=== PATIENT | male | born 1950 | race Caucasian/White ===

== ENCOUNTER 2016-07-07 02:53 | Emergency (ER) | payer OTHER ==
--- NOTE | 2016-07-07 04:02 | ED NURSING NOTES ---
Clinical Report - Nurses [facility] [address] [place] [address] 07/07/2016 2:55 Patient: TOMÁS WARD TRIAGE Acuity: LEVEL 4. Chief Complaint: SORE THROAT. --03:02 Samm Jensen R.N. 02:59 07/07/16. BP: 140/82. HR: 92. RR: 18. O2 saturation: 98%. Temp: 97.4 F. --03:02 Samm Jensen R.N. Weight: 99.7 kg stated. Height/Length: 73 inches Per Patient. BMI: 29. --03:02 Samm Jensen R.N. Medications None. --03:01 Samm Jensen R.N. Allergies No Known Drug Allergy. --03:01 Samm Jensen R.N. History ( Pt reports sore throat for 4 days reports that it has gotten worse and he has an interview in the AM). Onset. (4 days). SOCIAL HX: Heavy tobacco smoker. No alcohol use or drug use. --03:02 Samm Jensen R.N. Interventions ID band on patient. To treatment room. --03:02 Samm Jensen R.N. PHYSICAL ASSESSMENT GENERAL / NEURO / PSYCH: Appears in no acute distress. HEENT: Pupils equal, round and reactive to light. Left-sided tonsillar swelling. Mouth within normal limits upon inspection. No dental injury noted. RESPIRATORY: Respirations not labored. CVS: Capillary refill less than 2 seconds. SKIN: Skin is warm and dry. --03:07 Samm Jensen R.N. NURSING PROGRESS NOTES Call light placed in reach. Side rails up x 1. Bed placed in lowest position. Brakes of bed on. --03:07 Samm Jensen R.N. DISPOSITION / DISCHARGE Departure time: 0406. Condition at departure: unchanged. No learning barriers present. Discharge instructions provided and reviewed with the patient. Reviewed medication(s) information. Patient verbalized understanding. Written instructions provided in Nicarag[place]. The patient was discharged by the physician. He was discharged home and accompanied by family. He left the Emergency Department ambulatory and via private vehicle. Patient driving. ( Pt ambulated on discharge steady on his feet pt verbalized understanding of discharge instructions and follow up care.). --04:12 Samm Jensen R.N. 04:10 07/07/16. BP: 135/78. HR: 86. RR: 16. O2 saturation: 100%. Temp: 97.9 F. --04:12 Samm Jensen R.N. Locked/Released at 07/07/2016 5:46 by Samm Jensen R.N.
--- NOTE | 2016-07-07 04:02 | ED NURSING NOTES ---
Clinical Report - Nurses [facility] [address] [place] [address] 07/07/2016 2:55 Patient: TOMÁS WARD TRIAGE Acuity: LEVEL 4. Chief Complaint: SORE THROAT. --03:02 Samm Jensen R.N. 02:59 07/07/16. BP: 140/82. HR: 92. RR: 18. O2 saturation: 98%. Temp: 97.4 F. --03:02 Samm Jensen R.N. Weight: 99.7 kg stated. Height/Length: 73 inches Per Patient. BMI: 29. --03:02 Samm Jensen R.N. Medications None. --03:01 Samm Jensen R.N. Allergies No Known Drug Allergy. --03:01 Samm Jensen R.N. History ( Pt reports sore throat for 4 days reports that it has gotten worse and he has an interview in the AM). Onset. (4 days). SOCIAL HX: Heavy tobacco smoker. No alcohol use or drug use. --03:02 Samm Jensen R.N. Interventions ID band on patient. To treatment room. --03:02 Samm Jensen R.N. PHYSICAL ASSESSMENT GENERAL / NEURO / PSYCH: Appears in no acute distress. HEENT: Pupils equal, round and reactive to light. Left-sided tonsillar swelling. Mouth within normal limits upon inspection. No dental injury noted. RESPIRATORY: Respirations not labored. CVS: Capillary refill less than 2 seconds. SKIN: Skin is warm and dry. --03:07 Samm Jensen R.N. NURSING PROGRESS NOTES Call light placed in reach. Side rails up x 1. Bed placed in lowest position. Brakes of bed on. --03:07 Samm Jensen R.N. DISPOSITION / DISCHARGE Departure time: 0406. Condition at departure: unchanged. No learning barriers present. Discharge instructions provided and reviewed with the patient. Reviewed medication(s) information. Patient verbalized understanding. Written instructions provided in Welsh. The patient was discharged by the physician. He was discharged home and accompanied by family. He left the Emergency Department ambulatory and via private vehicle. Patient driving. ( Pt ambulated on discharge steady on his feet pt verbalized understanding of discharge instructions and follow up care.). --04:12 Samm Jensen R.N. 04:10 07/07/16. BP: 135/78. HR: 86. RR: 16. O2 saturation: 100%. Temp: 97.9 F. --04:12 Samm Jensen R.N. Locked/Released at 07/07/2016 5:46 by Samm Jensen R.N.
--- NOTE | 2016-07-07 04:02 | ED CLINICAL REPORT ---
Clinical Report - Physicians/Mid Levels [facility] [address] [place] [address] 07/07/2016 2:55 Patient: TOMÁS WARD Time Seen: 03:07; initial patient contact. Arrived- By private vehicle. Historian- patient. HISTORY OF PRESENT ILLNESS Chief Complaint: SORE THROAT. This started about 4 days ago and is still present and worsening. (persistent). It was gradual in onset and has been constant. Pain described as moderate. The patient has had a sore throat, nasal congestion and a nasal discharge. No mouth sores, ear pain, toothache or swollen jaw or face. No jaw pain or facial pain. Similar symptoms previously: None. Recent medical care: Not recently seen/assessed. REVIEW OF SYSTEMS No fever or difficulty breathing. He has had a cough. All systems otherwise negative, except as recorded above. PAST HISTORY See nurses notes. Medications: None. Allergies: No Known Drug Allergy. SOCIAL HISTORY Current every day heavy tobacco smoker. No alcohol use or drug use. ADDITIONAL NOTES The nursing notes have been reviewed with agreement regarding the chief complaint, PMH and patient medications and allergies. PHYSICAL EXAM Vital Signs: 07/07/2016 02:59 BP: 140/82. HR: 92. RR: 18. O2 saturation: 98%. Temp: 97.4 F. Have been reviewed. Hypertensive. Heart rate normal. Respiratory rate normal. Temperature normal. Oxygen saturation normal. Appearance: Alert. No acute distress. Head: Normal external inspection. ENT: Nose normal. Moderate generalized pharyngeal erythema with right tonsillar swelling and left tonsillar swelling. No trismus present. No drooling. The mucous membranes are not dry. Neck: No adenopathy. CVS: Normal heart rate and rhythm. Heart sounds normal. Respiratory: No respiratory distress. Breath sounds normal. Skin: No rash. Neuro: Oriented X 3. LABS, X-RAYS, AND EKG Laboratory Tests: Culture, Strep Screen: (NEDRA: 07/07/2016 03:02) ( MsgRcvd 07/07/2016 03:43) Final results Test Result Flag Units (Reference) RAPID STREP SCREEN - THROAT DATE: 07/07/16 NEGATIVE SCREEN: RAPID STREP SCREEN NEGATIVE; CONFIRMATION TO FOLLOW Rapid Influenza Screen: (NEDRA: 07/07/2016 03:02) ( MsgRcvd 07/07/2016 03:43) Final results SPECIMEN DESCRIPTION: WANT AD CLERK Test Result Flag Units (Reference) RAPID INFLUENZA SCREEN DATE: 07/07/16 INFLUENZA A: NEGATIVE SCREEN FOR INFLUENZA A INFLUENZA B: NEGATIVE SCREEN FOR INFLUENZA B . PROGRESS AND PROCEDURES Disposition: Discharged home in good condition. Condition: good. CLINICAL IMPRESSION Acute ethmoidal sinusitis INSTRUCTIONS Drink plenty of fluids. Prescription Medications: Flonase nasal spray: 2 sprays to each nostril daily. Dispense one (1) unit. No refill. Substitution is permissible Follow-up: Follow up with your doctor in about three days if not better. Call for an appointment. Screening today revealed the patient's blood pressure to be in the hypertensive range. The patient should follow up with a primary care provider for blood pressure management. (Electronically signed by Paul Oliveira Dr. 07/07/2016 4:04)
--- NOTE | 2016-07-07 04:02 | ED CLINICAL REPORT ---
Clinical Report - Physicians/Mid Levels [facility] [address] [place] [address] 07/07/2016 2:55 Patient: TOMÁS WARD Time Seen: 03:07; initial patient contact. Arrived- By private vehicle. Historian- patient. HISTORY OF PRESENT ILLNESS Chief Complaint: SORE THROAT. This started about 4 days ago and is still present and worsening. (persistent). It was gradual in onset and has been constant. Pain described as moderate. The patient has had a sore throat, nasal congestion and a nasal discharge. No mouth sores, ear pain, toothache or swollen jaw or face. No jaw pain or facial pain. Similar symptoms previously: None. Recent medical care: Not recently seen/assessed. REVIEW OF SYSTEMS No fever or difficulty breathing. He has had a cough. All systems otherwise negative, except as recorded above. PAST HISTORY See nurses notes. Medications: None. Allergies: No Known Drug Allergy. SOCIAL HISTORY Current every day heavy tobacco smoker. No alcohol use or drug use. ADDITIONAL NOTES The nursing notes have been reviewed with agreement regarding the chief complaint, PMH and patient medications and allergies. PHYSICAL EXAM Vital Signs: 07/07/2016 02:59 BP: 140/82. HR: 92. RR: 18. O2 saturation: 98%. Temp: 97.4 F. Have been reviewed. Hypertensive. Heart rate normal. Respiratory rate normal. Temperature normal. Oxygen saturation normal. Appearance: Alert. No acute distress. Head: Normal external inspection. ENT: Nose normal. Moderate generalized pharyngeal erythema with right tonsillar swelling and left tonsillar swelling. No trismus present. No drooling. The mucous membranes are not dry. Neck: No adenopathy. CVS: Normal heart rate and rhythm. Heart sounds normal. Respiratory: No respiratory distress. Breath sounds normal. Skin: No rash. Neuro: Oriented X 3. LABS, X-RAYS, AND EKG Laboratory Tests: Culture, Strep Screen: (NEDRA: 07/07/2016 03:02) ( MsgRcvd 07/07/2016 03:43) Final results Test Result Flag Units (Reference) RAPID STREP SCREEN - THROAT DATE: 07/07/16 NEGATIVE SCREEN: RAPID STREP SCREEN NEGATIVE; CONFIRMATION TO FOLLOW Rapid Influenza Screen: (NEDRA: 07/07/2016 03:02) ( MsgRcvd 07/07/2016 03:43) Final results SPECIMEN DESCRIPTION: WORSHIP PASTOR Test Result Flag Units (Reference) RAPID INFLUENZA SCREEN DATE: 07/07/16 INFLUENZA A: NEGATIVE SCREEN FOR INFLUENZA A INFLUENZA B: NEGATIVE SCREEN FOR INFLUENZA B . PROGRESS AND PROCEDURES Disposition: Discharged home in good condition. Condition: good. CLINICAL IMPRESSION Acute ethmoidal sinusitis INSTRUCTIONS Drink plenty of fluids. Prescription Medications: Flonase nasal spray: 2 sprays to each nostril daily. Dispense one (1) unit. No refill. Substitution is permissible Follow-up: Follow up with your doctor in about three days if not better. Call for an appointment. Screening today revealed the patient's blood pressure to be in the hypertensive range. The patient should follow up with a primary care provider for blood pressure management. (Electronically signed by Paul Oliveira Dr. 07/07/2016 4:04)
--- NOTE | 2016-07-07 04:02 | ED ORDER SUMMARY ---
..... Patient: TOMÁS WARD OrderSheet [facility] VisitID: [id number] [address] [address] 65y, M Registration Date/Time: 07/07/2016 ORDER SHEET Weight: 99.7 kg (stated) Allergies: No Known Drug Allergy GENERAL ORDERS: Rapid Influenza Screen (Nasal Pharyngeal) (treasury manager) Urgent (03:15 07/07/2016 DBeyer R.N. per protocol) (3:17 DBeyer R.N.) Culture, Strep Screen Urgent (03:17 07/07/2016 DBeyer R.N. per protocol) (3:17 DBeyer R.N.) MEDICATION ORDERS: IV FLUIDS: ORDER SHEET NOTES: [Electronically signed by Paul Oliveira Dr. (04:04 07/07/2016)] [Electronically signed by Samm Jensen R.N. (05:46 07/07/2016)] [Electronically locked/signed by Samm Jensen R.N. (05:46 07/07/2016)]
--- NOTE | 2016-07-07 04:02 | ED ORDER SUMMARY ---
..... Patient: TOMÁS WARD OrderSheet [facility] VisitID: [id number] [address] [place] [address] 65y, M Registration Date/Time: 07/07/2016 ORDER SHEET Weight: 99.7 kg (stated) Allergies: No Known Drug Allergy GENERAL ORDERS: Rapid Influenza Screen (Nasal Pharyngeal) (shipsmith) Urgent (03:15 07/07/2016 DBeyer R.N. per protocol) (3:17 DBeyer R.N.) Culture, Strep Screen Urgent (03:17 07/07/2016 DBeyer R.N. per protocol) (3:17 DBeyer R.N.) MEDICATION ORDERS: IV FLUIDS: ORDER SHEET NOTES: [Electronically signed by Paul Oliveira Dr. (04:04 07/07/2016)] [Electronically signed by Samm Jensen R.N. (05:46 07/07/2016)] [Electronically locked/signed by Samm Jensen R.N. (05:46 07/07/2016)]
--- NOTE | 2016-07-07 05:46 | ED MED RECONCILIATION SUMMARY ---
Patient: TOMÁS WARD Medication Reconciliation Report [facility] VisitID: [id number] [address] [place] [address] 65y, M Registration Date/Time: 07/07/2016 Weight: 99.7 kg Height/Length: 73 in. BMI: 29.0 ALLERGIES: No Known Drug Allergy The patient's Home Medications are listed below: NONE. The source(s) of the original Home Medication information: Not obtained. The following Medications were given to the patient in the Emergency Department: None. The following Medications were prescribed to the patient: Flonase nasal spray: 2 sprays to each nostril daily. Dispense one (1) unit. No refill. Substitution is permissible -- Paul Oliveira Dr.
--- NOTE | 2016-07-07 05:46 | ED MAR SUMMARY ---
..... Medication Administration Record [facility] [address] [place], [place] [id number] Patient: TOMÁS WARD Visit ID: [id number] 65y, M Weight: 99.7 kg Height/Length: 73 in BMI: 29 ALLERGIES: No Known Drug Allergy
--- NOTE | 2016-07-07 05:46 | ED MAR SUMMARY ---
..... Medication Administration Record [facility] [address] [place], [place] [id number] Patient: TOMÁS WARD Visit ID: [id number] 65y, M Weight: 99.7 kg Height/Length: 73 in BMI: 29 ALLERGIES: No Known Drug Allergy
--- NOTE | 2016-07-07 05:46 | ED DISCHARGE INSTRUCTIONS ---
Patient: TOMÁS WARD General Instructions [facility] VisitID: [id number] [place] [address] 65y, M Registration Date/Time: 07/07/2016 Acute ethmoidal sinusitis INSTRUCTIONS Drink plenty of fluids. Prescription Medications: Flonase nasal spray: 2 sprays to each nostril daily. Dispense one (1) unit. No refill. Substitution is permissible Follow-up: Follow up with your doctor in about three days if not better. Call for an appointment. Screening today revealed the patient's blood pressure to be in the hypertensive range. The patient should follow up with a primary care provider for blood pressure management. ADDITIONAL INFORMATION Sinusitis [No Abx Tx] The sinuses are air-filled spaces within the bones of the face. They connect to the inside of the nose. Sinusitis is an inflammation of the tissue lining the sinus cavity. Sinus inflammation can occur during a cold or hay-fever (allergies to pollens and other particles in the air) and cause symptoms of sinus congestion and fullness and perhaps a low-grade fever. This does not require antibiotic treatment. Home Care: Drink plenty of water, hot tea, and other liquids to stay well hydrated. This thins the mucus and promotes sinus drainage. Apply heat to the painful areas of the face. Use a towel soaked in hot water. Or, medical administrative assistant the shower and direct the hot spray onto your face. This is a good way to inhale warm water vapor and get heat on your face at the same time. (Cover your mouth and nose with your hands so you can still breathe as you do this.) Use a vaporizer with products such as [employer] VapoRub (contains menthol) at night. Suck on peppermint, menthol or eucalyptus hard candies during the day. An expectorant containing guaifenesin (such as Robitussin), helps to thin the mucus and promote drainage from the sinuses. [id number] decongestants may be used unless a similar medicine was prescribed. Nasal sprays work the fastest. Use one that contains phenylephrine (Khari-synephrine, Sinex and others) or oxymetazoline (Afrin). First blow the nose gently to remove mucus, then apply the drops. Do not use these medicines more often than directed on the label or for more than three days or symptoms may worsen. You may also use tablets containing pseudoephedrine (Sudafed). Many sinus remedies combine ingredients, which may increase side effects. Read the labels or ask the pharmacist for help. NOTE: Persons with high blood pressure should not use decongestants. They can raise blood pressure. Antihistamines are useful if allergies are a cause of your sinusitis. The mildest one is chlorpheniramine (available without a prescription). The dose for adults is 8-12mg three times a day. [NOTE: Do not use chlorpheniramine if you have glaucoma or if you are a man with trouble urinating due to an enlarged prostate.] Claritin (loratidine) is an antihistamine that causes less drowsiness and is a good alternative for daytime use. When allergies are the cause for sinusitis, a saline nasal rinse may give relief. Saline nasal rinse reduces swelling and clears excess mucus. This allows sinuses to drain. Pre-packaged kits are available at most drug stores. These contain pre-mixed salt packets and an irrigation device. You may use acetaminophen (Tylenol) or ibuprofen (Motrin, Advil) to control pain, unless another pain medicine was prescribed. [ NOTE: If you have chronic liver or kidney disease or ever had a stomach ulcer, talk with your doctor before using these medicines.] (Aspirin should never be used in anyone under 18 years of age who is ill with a fever. It may cause severe liver damage.) Follow Up with your doctor or this facility in one week or as instructed by our staff if not improving. Get Prompt Medical Attention if any of the following occur: Green or yellow drainage from the nose or into the back of the throat (post-nasal drip) Worsening sinus pain or headache Stiff neck Unusual drowsiness, confusion or not acting like your normal self Swelling of the forehead or eyelids Vision problems including blurred or double vision Fever of 100.4F (38C) or higher, or as directed by your healthcare provider Seizure Fluticasone Propionate Nasal spray, solution What is this medicine? FLUTICASONE (floo TIK a sone) is a corticosteroid. It helps decrease inflammation in your nose. This medicine is used to treat the symptoms of allergies like sneezing, itching, and runny or stuffy nose. How should I use this medicine? This medicine is for use in the nose. Follow the directions on your prescription label. This medicine works best if used regularly. Do not use more often than directed. Make sure that you are using your nasal spray correctly. Ask you doctor or health care provider if you have any questions. Talk to your corporate executive chef regarding the use of this medicine in children. While this drug may be prescribed for children as young as 4 years old for selected conditions, precautions do apply. What side effects may I notice from receiving this medicine? Side effects that you should report to your doctor or health nonfarm animal caretaker as soon as possible: allergic reactions like skin rash, itching or hives, swelling of the face, lips, or tongue changes in vision flu-like symptoms white patches or sores in the mouth or nose Side effects that usually do not require medical attention (report to your doctor or health nonfarm animal caretaker if they continue or are bothersome): burning or irritation inside the nose or throat cough headache nosebleed unusual taste or smell What may interact with this medicine? ketoconazole metyrapone some medicines for HIV vaccines What if I miss a dose? If you miss a dose, use it as soon as you remember. If it is almost time for your next dose, use only that dose and continue with your regular schedule. Do not use double or extra doses. Where should I keep my medicine? Keep out of the reach of children. Store at room temperature between 15 and 30 degrees C (59 and 86 degrees F). Throw away any unused medicine after the expiration date. What should I tell my health care provider before I take this medicine? They need to know if you have any of these conditions: infection, like tuberculosis, herpes, or fungal infection recent surgery on nose or sinuses taking corticosteroid by mouth an unusual or allergic reaction to fluticasone, steroids, other medicines, foods, dyes, or preservatives or trying to get breast-feeding What should I watch for while using this medicine? Visit your doctor or health nonfarm animal caretaker for regular checks on your progress. Some symptoms may improve within 12 hours after starting use. Check with your doctor or health nonfarm animal caretaker if there is no improvement in your condition after 3 weeks of use. Do not come in contact with people who have chickenpox or the measles while you are taking this medicine. If you do, call your doctor right away. You have been given the following additional information: Sinusitis, No Abx Fluticasone Propionate Nasal spray, solution (Electronically signed by Paul Oliveira Dr. 07/07/2016 4:04)
--- NOTE | 2016-07-07 05:46 | ED DISCHARGE INSTRUCTIONS ---
Patient: TOMÁS WARD General Instructions [facility] VisitID: [id number] [place] [address] 65y, M Registration Date/Time: 07/07/2016 Acute ethmoidal sinusitis INSTRUCTIONS Drink plenty of fluids. Prescription Medications: Flonase nasal spray: 2 sprays to each nostril daily. Dispense one (1) unit. No refill. Substitution is permissible Follow-up: Follow up with your doctor in about three days if not better. Call for an appointment. Screening today revealed the patient's blood pressure to be in the hypertensive range. The patient should follow up with a primary care provider for blood pressure management. ADDITIONAL INFORMATION Sinusitis [No Abx Tx] The sinuses are air-filled spaces within the bones of the face. They connect to the inside of the nose. Sinusitis is an inflammation of the tissue lining the sinus cavity. Sinus inflammation can occur during a cold or hay-fever (allergies to pollens and other particles in the air) and cause symptoms of sinus congestion and fullness and perhaps a low-grade fever. This does not require antibiotic treatment. Home Care: Drink plenty of water, hot tea, and other liquids to stay well hydrated. This thins the mucus and promotes sinus drainage. Apply heat to the painful areas of the face. Use a towel soaked in hot water. Or, instrument designer the shower and direct the hot spray onto your face. This is a good way to inhale warm water vapor and get heat on your face at the same time. (Cover your mouth and nose with your hands so you can still breathe as you do this.) Use a vaporizer with products such as 2degreesmobile VapoRub (contains menthol) at night. Suck on peppermint, menthol or eucalyptus hard candies during the day. An expectorant containing guaifenesin (such as Robitussin), helps to thin the mucus and promote drainage from the sinuses. Ruko-min-uathbim decongestants may be used unless a similar medicine was prescribed. Nasal sprays work the fastest. Use one that contains phenylephrine (Khari-synephrine, Sinex and others) or oxymetazoline (Afrin). First blow the nose gently to remove mucus, then apply the drops. Do not use these medicines more often than directed on the label or for more than three days or symptoms may worsen. You may also use tablets containing pseudoephedrine (Sudafed). Many sinus remedies combine ingredients, which may increase side effects. Read the labels or ask the pharmacist for help. NOTE: Persons with high blood pressure should not use decongestants. They can raise blood pressure. Antihistamines are useful if allergies are a cause of your sinusitis. The mildest one is chlorpheniramine (available without a prescription). The dose for adults is 8-12mg three times a day. [NOTE: Do not use chlorpheniramine if you have glaucoma or if you are a man with trouble urinating due to an enlarged prostate.] Claritin (loratidine) is an antihistamine that causes less drowsiness and is a good alternative for daytime use. When allergies are the cause for sinusitis, a saline nasal rinse may give relief. Saline nasal rinse reduces swelling and clears excess mucus. This allows sinuses to drain. Pre-packaged kits are available at most drug stores. These contain pre-mixed salt packets and an irrigation device. You may use acetaminophen (Tylenol) or ibuprofen (Motrin, Advil) to control pain, unless another pain medicine was prescribed. [ NOTE: If you have chronic liver or kidney disease or ever had a stomach ulcer, talk with your doctor before using these medicines.] (Aspirin should never be used in anyone under 18 years of age who is ill with a fever. It may cause severe liver damage.) Follow Up with your doctor or this facility in one week or as instructed by our staff if not improving. Get Prompt Medical Attention if any of the following occur: Green or yellow drainage from the nose or into the back of the throat (post-nasal drip) Worsening sinus pain or headache Stiff neck Unusual drowsiness, confusion or not acting like your normal self Swelling of the forehead or eyelids Vision problems including blurred or double vision Fever of 100.4F (38C) or higher, or as directed by your healthcare provider Seizure Fluticasone Propionate Nasal spray, solution What is this medicine? FLUTICASONE (floo TIK a sone) is a corticosteroid. It helps decrease inflammation in your nose. This medicine is used to treat the symptoms of allergies like sneezing, itching, and runny or stuffy nose. How should I use this medicine? This medicine is for use in the nose. Follow the directions on your prescription label. This medicine works best if used regularly. Do not use more often than directed. Make sure that you are using your nasal spray correctly. Ask you doctor or health care provider if you have any questions. Talk to your environmental project manager regarding the use of this medicine in children. While this drug may be prescribed for children as young as 4 years old for selected conditions, precautions do apply. What side effects may I notice from receiving this medicine? Side effects that you should report to your doctor or health adult day care worker as soon as possible: allergic reactions like skin rash, itching or hives, swelling of the face, lips, or tongue changes in vision flu-like symptoms white patches or sores in the mouth or nose Side effects that usually do not require medical attention (report to your doctor or health adult day care worker if they continue or are bothersome): burning or irritation inside the nose or throat cough headache nosebleed unusual taste or smell What may interact with this medicine? ketoconazole metyrapone some medicines for HIV vaccines What if I miss a dose? If you miss a dose, use it as soon as you remember. If it is almost time for your next dose, use only that dose and continue with your regular schedule. Do not use double or extra doses. Where should I keep my medicine? Keep out of the reach of children. Store at room temperature between 15 and 30 degrees C (59 and 86 degrees F). Throw away any unused medicine after the expiration date. What should I tell my health care provider before I take this medicine? They need to know if you have any of these conditions: infection, like tuberculosis, herpes, or fungal infection recent surgery on nose or sinuses taking corticosteroid by mouth an unusual or allergic reaction to fluticasone, steroids, other medicines, foods, dyes, or preservatives or trying to get breast-feeding What should I watch for while using this medicine? Visit your doctor or health adult day care worker for regular checks on your progress. Some symptoms may improve within 12 hours after starting use. Check with your doctor or health adult day care worker if there is no improvement in your condition after 3 weeks of use. Do not come in contact with people who have chickenpox or the measles while you are taking this medicine. If you do, call your doctor right away. You have been given the following additional information: Sinusitis, No Abx Fluticasone Propionate Nasal spray, solution (Electronically signed by Paul Oliveira Dr. 07/07/2016 4:04)
--- NOTE | 2016-07-07 05:46 | ED MED RECONCILIATION SUMMARY ---
Patient: TOMÁS WARD Medication Reconciliation Report Merged With [facility] VisitID: [id number] [address] [place] [address] 65y, M Registration Date/Time: 07/07/2016 Weight: 99.7 kg Height/Length: 73 in. BMI: 29.0 ALLERGIES: No Known Drug Allergy The patient's Home Medications are listed below: NONE. The source(s) of the original Home Medication information: Not obtained. The following Medications were given to the patient in the Emergency Department: None. The following Medications were prescribed to the patient: Flonase nasal spray: 2 sprays to each nostril daily. Dispense one (1) unit. No refill. Substitution is permissible -- Paul Oliveira Dr.
== END 2016-07-07 04:00 | disposition home or self-care (01) ==
LOC: ED SRH 02:53
DX: J01.20 Acute ethmoidal sinusitis, unspecified (principal); F17.200 Nicotine dependence, unspecified, uncomplicated
CPT/HCPCS: 90154; 90159; 91400

== ENCOUNTER 2016-09-04 06:49 | Emergency (ER) | payer OTHER ==
--- NOTE | 2016-09-04 07:37 | ED NURSING NOTES ---
Clinical Report - Nurses [place] [address] [place] [address] 09/04/2016 6:49 Patient: TOMÁS WARD TRIAGE Triage time 06:55. Acuity: LEVEL 4. Chief Complaint: RIGHT LOWER EXTREMITY PAIN, SWELLING and REDNESS. 07:00. Alert. SEPSIS SCREEN: Sepsis Screen. Negative (no infection suspected/documented). ESTELLA COMA SCORE: [place] Coma Scale: 15- eyes open spontaneously (4); best verbal response- oriented x 4 (5); best motor response- obeys commands (6). --07:01 Paul De La Fuente R.N. 06:55 09/04/16. BP: 146/74. HR: 69. RR: 15. O2 saturation: 100%. Temp: 98.4 F. Pain level now: 06/13. --07:01 Paul De La Fuente R.N. Weight: 100.2 kg measured. Height/Length: 73 inches Per Patient. BMI: 29.2. --06:58 Paul De La Fuente R.N. Medications None. --06:57 Paul De La Fuente R.N. Medication/allergy information source: the patient. --07:01 Paul De La Fuente R.N. Allergies No Known Drug Allergy. --06:57 Paul De La Fuente R.N. History Arrived by private vehicle. Historian: patient. Unaccompanied. Primary physician (Octavio). An injury may have occurred. This occurred (2 weeks ago). ( Patient complaining of a bump on the top of his right foot). Treatment BRANCH LEAD: None. PAST MEDICAL HX: Tetanus status: up-to-date. Immunizations: up-to-date. SOCIAL HX: Current every day heavy tobacco smoker- 1 pack per day. Alcohol use. (quit 18 months ago). No drug use. No infectious disease exposure. ABUSE ASSESSMENT: No report of abuse. FALL RISK ASSESSMENT: Fall risk assessment completed. No fall risk identified. NUTRITIONAL RISK ASSESSMENT: The nutritional risk assessment revealed no deficiencies. FUNCTIONAL ASSESSMENT: Functional assessment: no impairments noted. LEARNING NEEDS ASSESSMENT: The learning needs assessment revealed no barriers. SKIN INTEGRITY ASSESSMENT: Skin integrity risk assessment completed. No skin integrity risk identified. --07:01 Paul De La Fuente R.N. PROBLEMS: Sinusitis. --06:57 Paul De La Fuente R.N. ADDITIONAL SURGERIES: no known surgeries. Interventions ID band on patient. To treatment room. --07:01 Paul De La Fuente R.N. PHYSICAL ASSESSMENT 07:02. Ambulatory to room. GENERAL / NEURO / PSYCH: Oriented X 4. Alert. EXTREMITIES: Extremity pulses are within normal limits. Neuro-vascular status intact to the extremity. Right foot: swelling. SKIN: Skin intact. Skin is warm and dry. --07:02 Paul De La Fuente R.N. NURSING PROGRESS NOTES 07:03. Two patient identifiers checked. Call light placed in reach. Bed placed in lowest position. Brakes of bed on. Patient ready for evaluation- chart flagged. --07:26 Paul De La Fuente R.N. 07:26 Portable x-ray right foot. --07:26 Paul De La Fuente R.N. DISPOSITION / DISCHARGE Departure time: 07:57. No learning barriers present. Discharge instructions provided and reviewed with the patient. Patient verbalized understanding. Written instructions provided in Martiniquais. The patient was discharged home. He left the Emergency Department ambulatory and via private vehicle. Patient driving. --07:57 Shira Gordon R.N. Locked/Released at 09/04/2016 7:58 by Shira Gordon R.N.
--- NOTE | 2016-09-04 07:37 | ED CLINICAL REPORT ---
Clinical Report - Physicians/Mid Levels [facility] [address] [place] [address] 09/04/2016 6:49 Patient: TOMÁS WARD Time Seen: 07:06. Arrived- By private vehicle. Historian- patient. HISTORY OF PRESENT ILLNESS Chief Complaint: LOWER EXTREMITY PAIN. Severity is described as being moderate. The quality is noted to be dull, "pain" and similar to prior episodes. No radiation. Modifying factors- worsened by walking and movement. Relieved by remaining still. (states wearing rubber boots makes it worse). This started several weeks ago and is still present. It was abrupt in onset and has been waxing/waning. Symptoms located in the area of the left foot. The patient has had redness and swelling. He has had difficulty walking. No bladder dysfunction, bowel dysfunction, sensory loss or motor loss. Patient notes an injury. Mechanism of injury- (dropped object on foot about 3 weeks ago - seems to have started after that). Similar symptoms previously: Recent medical care: The patient was seen recently at this facility in the emergency department. Seen for other problems. Diagnosis: (URI / sinusitis). ( Seen at [facility] ED approx 2 months ago). REVIEW OF SYSTEMS No difficulty breathing, fever, skin rash, abdominal pain or vomiting. No diarrhea, black stools, difficulty with urination or bloody stools. PAST HISTORY See nurses notes. ( PCP: [facility]). Ulcerative colitis. Sinus problems. Surgeries: No history of previous surgery. Additional Surgeries: no known surgeries. Medications: None. Allergies: No Known Drug Allergy. SOCIAL HISTORY Smoker- current status unknown. Alcohol use. (quit 18 months ago). No drug use. Is a local resident. ADDITIONAL NOTES The nursing notes have been reviewed. PHYSICAL EXAM Vital Signs: 09/04/2016 06:55 BP: 146/74. HR: 69. RR: 15. O2 saturation: 100%. Temp: 98.4 F. Pain level now: 1/10. Appearance: Alert. Oriented X3. No acute distress. Eyes: Eyes normal inspection. No pale conjunctivae or scleral icterus. ENT: Pharynx normal. Neck: Normal inspection. Neck supple. CVS: Normal heart rate and rhythm. Heart sounds normal. Respiratory: No respiratory distress. Breath sounds normal. Abdomen: Soft and nontender. Back: Normal inspection. Skin: Skin intact. Skin warm and dry. Normal skin color. Normal skin turgor. Extremities: Right foot: mild tenderness located in the medial aspect of the mid foot and first toe(s). (most tenderness at 1st metatarsal - tarsal joint area; no other signs of infection or inflammation). No erythema, swelling, abrasion, ecchymosis or puncture wound. No foreign body or deformity. Extremities otherwise negative. Neuro: Oriented X 3. No motor deficit. No sensory deficit. LABS, X-RAYS, AND EKG Rt Foot X-ray: No fracture. Joint spaces normal. No air in the soft tissue or foreign body. Degenerative joint disease. Views: AP, lateral and oblique. Technique: good. The X-rays were interpreted contemporaneously by me. Pulse Oximetry: 09/04/2016 06:55 O2 saturation: 100%. (FIO2 - room air). Interpretation: normal. PROGRESS AND PROCEDURES Course of Care: No signs of infection or significant inflammation now other than mild tenderness over 1st MTT joint. Patient/family counseled. Old ED records reviewed. Disposition: Discharged. Condition: stable and improved. CLINICAL IMPRESSION Chronic arthritis of the right foot due to osteoarthritis (right first tarsometatarsal joint). Essential hypertension. Clinical picture does not suggest cellulitis, abscess, deep venous thrombosis, pedal edema or acute arterial occlusion in the lower extremity. INSTRUCTIONS Elevate affected areas above chest level. You may walk and bear weight as tolerated. Do not smoke. Seek medical help to quit smoking. (Please consider alternative footware that does no irritate the troublesome joint (i.e., no rubber boots)). Warnings: Further evaluation is necessary. It is very important to follow up with a physician. GENERAL WARNINGS: Return or contact your physician immediately if your condition worsens or changes unexpectedly, if not improving as expected, or if other problems arise. Prescription Medications: Ibuprofen 600mg tablets: take 1 tablet orally every 8 hours as needed for pain. Dispense thirty (30). No refills. OTC Medications: Acetaminophen (available over the counter): take according to label instructions. Follow-up: Follow up with your doctor [facility] - there are walk-in clinics available at [facility] which work with your doctor and are available 7 days per week for your convenience if you are having trouble making an appointment with your doctor in about three days. Call for the next available appointment. Screening today revealed the patient's blood pressure to be in the hypertensive range. The patient should follow up with a primary care provider for blood pressure management. Follow-up with: Darrell Warner DPM, Podiatry, , [facility], [address] [place] [address], [address] [place] [address] Follow up in about three days. (Electronically signed by Hammad Romero DO 09/04/2016 11:00)
--- NOTE | 2016-09-04 07:37 | ED NURSING NOTES ---
Clinical Report - Nurses [place] [address] [place] [address] 09/04/2016 6:49 Patient: TOMÁS WARD TRIAGE Triage time 06:55. Acuity: LEVEL 4. Chief Complaint: RIGHT LOWER EXTREMITY PAIN, SWELLING and REDNESS. 07:00. Alert. SEPSIS SCREEN: Sepsis Screen. Negative (no infection suspected/documented). ESTELLA COMA SCORE: [place] Coma Scale: 15- eyes open spontaneously (4); best verbal response- oriented x 4 (5); best motor response- obeys commands (6). --07:01 Paul De La Fuente R.N. 06:55 09/04/16. BP: 146/74. HR: 69. RR: 15. O2 saturation: 100%. Temp: 98.4 F. Pain level now: 06/13. --07:01 Paul De La Fuente R.N. Weight: 100.2 kg measured. Height/Length: 73 inches Per Patient. BMI: 29.2. --06:58 Paul De LaF uente R.N. Medications None. --06:57 Paul De La Fuente R.N. Medication/allergy information source: the patient. --07:01 Paul De La Fuente R.N. Allergies No Known Drug Allergy. --06:57 Paul De La Fuente R.N. History Arrived by private vehicle. Historian: patient. Unaccompanied. Primary physician (Octavio). An injury may have occurred. This occurred (2 weeks ago). ( Patient complaining of a bump on the top of his right foot). Treatment INSPECTOR BALL POINTS: None. PAST MEDICAL HX: Tetanus status: up-to-date. Immunizations: up-to-date. SOCIAL HX: Current every day heavy tobacco smoker- 1 pack per day. Alcohol use. (quit 18 months ago). No drug use. No infectious disease exposure. ABUSE ASSESSMENT: No report of abuse. FALL RISK ASSESSMENT: Fall risk assessment completed. No fall risk identified. NUTRITIONAL RISK ASSESSMENT: The nutritional risk assessment revealed no deficiencies. FUNCTIONAL ASSESSMENT: Functional assessment: no impairments noted. LEARNING NEEDS ASSESSMENT: The learning needs assessment revealed no barriers. SKIN INTEGRITY ASSESSMENT: Skin integrity risk assessment completed. No skin integrity risk identified. --07:01 Paul De La Fuente R.N. PROBLEMS: Sinusitis. --06:57 Paul De La Fuente R.N. ADDITIONAL SURGERIES: no known surgeries. Interventions ID band on patient. To treatment room. --07:01 Paul De La Fuente R.N. PHYSICAL ASSESSMENT 07:02. Ambulatory to room. GENERAL / NEURO / PSYCH: Oriented X 4. Alert. EXTREMITIES: Extremity pulses are within normal limits. Neuro-vascular status intact to the extremity. Right foot: swelling. SKIN: Skin intact. Skin is warm and dry. --07:02 Paul De La Fuente R.N. NURSING PROGRESS NOTES 07:03. Two patient identifiers checked. Call light placed in reach. Bed placed in lowest position. Brakes of bed on. Patient ready for evaluation- chart flagged. --07:26 Paul De La Fuente R.N. 07:26 Portable x-ray right foot. --07:26 Paul De La Fuente R.N. DISPOSITION / DISCHARGE Departure time: 07:57. No learning barriers present. Discharge instructions provided and reviewed with the patient. Patient verbalized understanding. Written instructions provided in [place]. The patient was discharged home. He left the Emergency Department ambulatory and via private vehicle. Patient driving. --07:57 Shira Gordon R.N. Locked/Released at 09/04/2016 7:58 by Shira Gordon R.N.
--- NOTE | 2016-09-04 07:37 | ED CLINICAL REPORT ---
Clinical Report - Physicians/Mid Levels [facility] [address] [place] [address] 09/04/2016 6:49 Patient: TOMÁS WARD Time Seen: 07:06. Arrived- By private vehicle. Historian- patient. HISTORY OF PRESENT ILLNESS Chief Complaint: LOWER EXTREMITY PAIN. Severity is described as being moderate. The quality is noted to be dull, "pain" and similar to prior episodes. No radiation. Modifying factors- worsened by walking and movement. Relieved by remaining still. (states wearing rubber boots makes it worse). This started several weeks ago and is still present. It was abrupt in onset and has been waxing/waning. Symptoms located in the area of the left foot. The patient has had redness and swelling. He has had difficulty walking. No bladder dysfunction, bowel dysfunction, sensory loss or motor loss. Patient notes an injury. Mechanism of injury- (dropped object on foot about 3 weeks ago - seems to have started after that). Similar symptoms previously: Recent medical care: The patient was seen recently at this facility in the emergency department. Seen for other problems. Diagnosis: (URI / sinusitis). ( Seen at [facility] ED approx 2 months ago). REVIEW OF SYSTEMS No difficulty breathing, fever, skin rash, abdominal pain or vomiting. No diarrhea, black stools, difficulty with urination or bloody stools. PAST HISTORY See nurses notes. ( PCP: [facility]). Ulcerative colitis. Sinus problems. Surgeries: No history of previous surgery. Additional Surgeries: no known surgeries. Medications: None. Allergies: No Known Drug Allergy. SOCIAL HISTORY Smoker- current status unknown. Alcohol use. (quit 18 months ago). No drug use. Is a local resident. ADDITIONAL NOTES The nursing notes have been reviewed. PHYSICAL EXAM Vital Signs: 09/04/2016 06:55 BP: 146/74. HR: 69. RR: 15. O2 saturation: 100%. Temp: 98.4 F. Pain level now: 1/10. Appearance: Alert. Oriented X3. No acute distress. Eyes: Eyes normal inspection. No pale conjunctivae or scleral icterus. ENT: Pharynx normal. Neck: Normal inspection. Neck supple. CVS: Normal heart rate and rhythm. Heart sounds normal. Respiratory: No respiratory distress. Breath sounds normal. Abdomen: Soft and nontender. Back: Normal inspection. Skin: Skin intact. Skin warm and dry. Normal skin color. Normal skin turgor. Extremities: Right foot: mild tenderness located in the medial aspect of the mid foot and first toe(s). (most tenderness at 1st metatarsal - tarsal joint area; no other signs of infection or inflammation). No erythema, swelling, abrasion, ecchymosis or puncture wound. No foreign body or deformity. Extremities otherwise negative. Neuro: Oriented X 3. No motor deficit. No sensory deficit. LABS, X-RAYS, AND EKG Rt Foot X-ray: No fracture. Joint spaces normal. No air in the soft tissue or foreign body. Degenerative joint disease. Views: AP, lateral and oblique. Technique: good. The X-rays were interpreted contemporaneously by me. Pulse Oximetry: 09/04/2016 06:55 O2 saturation: 100%. (FIO2 - room air). Interpretation: normal. PROGRESS AND PROCEDURES Course of Care: No signs of infection or significant inflammation now other than mild tenderness over 1st MTT joint. Patient/family counseled. Old ED records reviewed. Disposition: Discharged. Condition: stable and improved. CLINICAL IMPRESSION Chronic arthritis of the right foot due to osteoarthritis (right first tarsometatarsal joint). Essential hypertension. Clinical picture does not suggest cellulitis, abscess, deep venous thrombosis, pedal edema or acute arterial occlusion in the lower extremity. INSTRUCTIONS Elevate affected areas above chest level. You may walk and bear weight as tolerated. Do not smoke. Seek medical help to quit smoking. (Please consider alternative footware that does no irritate the troublesome joint (i.e., no rubber boots)). Warnings: Further evaluation is necessary. It is very important to follow up with a physician. GENERAL WARNINGS: Return or contact your physician immediately if your condition worsens or changes unexpectedly, if not improving as expected, or if other problems arise. Prescription Medications: Ibuprofen 600mg tablets: take 1 tablet orally every 8 hours as needed for pain. Dispense thirty (30). No refills. OTC Medications: Acetaminophen (available over the counter): take according to label instructions. Follow-up: Follow up with your doctor [facility] - there are walk-in clinics available at [facility] which work with your doctor and are available 7 days per week for your convenience if you are having trouble making an appointment with your doctor in about three days. Call for the next available appointment. Screening today revealed the patient's blood pressure to be in the hypertensive range. The patient should follow up with a primary care provider for blood pressure management. Follow-up with: Darrell Warner DPM, Podiatry, , [facility], [address] [place] [address], [address] [place] [address] Follow up in about three days. (Electronically signed by Hammad Romero DO 09/04/2016 11:00)
--- NOTE | 2016-09-04 07:37 | ED ORDER SUMMARY ---
..... Patient: TOMÁS WARD OrderSheet [facility] VisitID: [id number] [address] [place] [address] 65y, M Registration Date/Time: 09/04/2016 ORDER SHEET Weight: 100.2 kg (measured) Allergies: No Known Drug Allergy GENERAL ORDERS: Foot 3V Right (injury several weeks ago, persistent pain) Urgent (07:11 09/04/2016 Nate WALTER) (7:27 Latanya Guadalupe) MEDICATION ORDERS: IV FLUIDS: ORDER SHEET NOTES: [Electronically signed by Shira Gordon R.N. (07:58 09/04/2016)] [Electronically signed by Hammad Romero DO (11:00 09/04/2016)] [Electronically locked/signed by Shira Gordon R.N. (07:58 09/04/2016)]
--- NOTE | 2016-09-04 07:37 | ED ORDER SUMMARY ---
..... Patient: TOMÁS WARD OrderSheet [facility] VisitID: [id number] [address] [place] [address] 65y, M Registration Date/Time: 09/04/2016 ORDER SHEET Weight: 100.2 kg (measured) Allergies: No Known Drug Allergy GENERAL ORDERS: Foot 3V Right (injury several weeks ago, persistent pain) Urgent (07:11 09/04/2016 Nate WALTER) (7:27 Latanya Guadalupe) MEDICATION ORDERS: IV FLUIDS: ORDER SHEET NOTES: [Electronically signed by Shira Gordon R.N. (07:58 09/04/2016)] [Electronically signed by Hammad Romero DO (11:00 09/04/2016)] [Electronically locked/signed by Shira Gordon R.N. (07:58 09/04/2016)]
--- NOTE | 2016-09-04 08:01 | DIAGNOSTIC IMAGING REPORT ---
PROCEDURE: XR FOOT 3 VIEWS - RIGHT INDICATION: TRAUMA/INJURY TECHNIQUE: Three views. COMPARISON: None. FINDINGS: There are mild to moderate degenerative changes of the medial right midfoot and base of the right first metatarsal. The rest of the osseous structures and joint spaces are normal. No evidence of fracture. IMPRESSION: 1. Mild to moderate degenerative changes (midfoot). 2. Otherwise negative right foot.
--- NOTE | 2016-09-04 11:00 | ED MED RECONCILIATION SUMMARY ---
Patient: TOMÁS WARD Medication Reconciliation Report [facility] VisitID: [id number] [address] [place] [address] 65y, M Registration Date/Time: 09/04/2016 Weight: 100.2 kg Height/Length: 73 in. BMI: 29.2 ALLERGIES: No Known Drug Allergy The patient's Home Medications are listed below: NONE. The source(s) of the original Home Medication information: patient The following Medications were given to the patient in the Emergency Department: None. The following Medications were prescribed to the patient: Acetaminophen (available over the counter): take according to label instructions. -- Hammad Romero DO Ibuprofen 600mg tablets: take 1 tablet orally every 8 hours as needed for pain. Dispense thirty (30). No refills. -- Hammad Romero DO
--- NOTE | 2016-09-04 11:00 | ED MED RECONCILIATION SUMMARY ---
Patient: TOMÁS WARD Medication Reconciliation Report [facility] VisitID: [id number] [address] [place] [address] 65y, M Registration Date/Time: 09/04/2016 Weight: 100.2 kg Height/Length: 73 in. BMI: 29.2 ALLERGIES: No Known Drug Allergy The patient's Home Medications are listed below: NONE. The source(s) of the original Home Medication information: patient The following Medications were given to the patient in the Emergency Department: None. The following Medications were prescribed to the patient: Acetaminophen (available over the counter): take according to label instructions. -- Hammad Romero DO Ibuprofen 600mg tablets: take 1 tablet orally every 8 hours as needed for pain. Dispense thirty (30). No refills. -- Hammad Romero DO
--- NOTE | 2016-09-04 11:00 | ED DISCHARGE INSTRUCTIONS ---
Patient: TOMÁS WARD General Inst[facility] VisitID: [id number] [place] [address] 65y, M Registration Date/Time: 09/04/2016 Chronic arthritis of the right foot due to osteoarthritis (right first tarsometatarsal joint). Essential hypertension. INSTRUCTIONS Elevate affected areas above chest level. You may walk and bear weight as tolerated. Do not smoke. Seek medical help to quit smoking. (Please consider alternative footware that does no irritate the troublesome joint (i.e., no rubber boots)). Warnings: Further evaluation is necessary. It is very important to follow up with a physician. GENERAL WARNINGS: Return or contact your physician immediately if your condition worsens or changes unexpectedly, if not improving as expected, or if other problems arise. Prescription Medications: Ibuprofen 600mg tablets: take 1 tablet orally every 8 hours as needed for pain. Dispense thirty (30). No refills. OTC Medications: Acetaminophen (available over the counter): take according to label instructions. Follow-up: Follow up with your doctor [facility] - there are walk-in clinics available at [facility] which work with your doctor and are available 7 days per week for your convenience if you are having trouble making an appointment with your doctor in about three days. Call for the next available appointment. Screening today revealed the patient's blood pressure to be in the hypertensive range. The patient should follow up with a primary care provider for blood pressure management. Follow-up with: Darrell Warner DPM, Podiatry, , [facility], [address] [place] [address], [address] [address] Follow up in about three days. ADDITIONAL INFORMATION Osteoarthritis Osteoarthritis (also called Degenerative Joint Disease) is the most common form of arthritis in adults over 50. It is not the same as Rheumatoid Arthritis. The exact cause is not known but may be related to excess wear and tear on the joint over a long period of time. Prior injury to that joint, or repeated stress on a joint can also cause this type of arthritis. Osteoarthritis most often affects the hands, knees, spine and hips (in that order). The most common symptoms are joint stiffness, pain and swelling. Home Care: When a joint is more sore than usual, rest that joint for a day or two. Heat is very helpful. This can be provided by taking hot baths, applying a heating pad for up to 30 minutes at a time. Because symptoms are usually worse in the morning, many patients like to take a hot bath just after awakening to relax the muscle and soothe the joints. Exercise is the most important part of home treatment for osteoarthritis. This prevents the muscles and ligaments around the joint from becoming weak and helps maintain the full range of joint motion. This limits further damage to the joint. If you are overweight, this puts a lot of extra strain on weight-bearing joints of the lower back, hips, knees, feet and ankles. Losing weight will improve your arthritis symptoms in these joints. Talk to your doctor about a safe and effective weight loss program for yourself. Anti-inflammatory medicine such as ibuprofen (Advil, Motrin) or naproxen (Aleve) is often used to treat this condition. If this alone is not helping, your doctor may prescribe a stronger medicine. If narcotic pain medicines have been prescribed, they should be used in addition to anti-inflammatory drugs and only for severe pain. Follow Up with your doctor as advised by our staff. Get Prompt Medical Attention if any of the following occur: Redness or swelling of a painful joint Fever of 100.4F (38C) or higher, or as directed by your healthcare provider Worsening joint pain Gout Gout or "gouty arthritis" is an inflammation of a joint due to a build-up of gout crystals in the joint fluid. This occurs when there is an excess uric acid (a normal waste product) in the body. Uric acid builds up in the body when the kidneys are unable to filter enough of it from the blood. This may occur with aging or kidney disease. Gout occurs more often in persons with obesity, diabetes, hypertension, high fats in the blood. It may be present in other family members. Alcohol and certain foods (such as shellfish and alcohol) may increase uric acid levels in the blood and cause a gout attack. Gout causes a hot, red, swollen and painful joint. If you have had one episode of gout, you are likely to have another. An acute attack of gout can be treated with anti-inflammatory and other medicine. If these attacks become frequent it may be necessary to take a daily medicine to help the kidney remove uric acid from the body. Home Care: Apply an ice pack (ice cubes in a plastic bag, wrapped in a towel) over the injured area for 20 minutes every 1-2 hours the first day for pain relief. Continue this 3-4 times a day until the pain and swelling goes away. Avoid alcohol and foods listed below (see Prevention) during a gout attack. Drink extra fluid to help flush the uric acid through your kidneys. Rest painful joints. If gout affects the joints of your foot or leg, you may want to use crutches for the first few days to keep from bearing weight on the foot or leg. Take anti-inflammatory medicine as directed. You may be prescribed Indocin (indomethacin), or [id number] drugs such as ibuprofen (Motrin, Advil) or naproxen (Naprosyn or Aleve). Tylenol will not be as effective since it is not an anti-inflammatory drug. If narcotic pain medicines have been prescribed, they should be used in addition to the anti-inflammatory drugs and only for severe pain. Avoid aspirin since this may slow down the flushing of the uric acid through your kidneys. Preventing Future Attacks: Minimize or avoid alcohol use. Excess alcohol intake can cause a gout attack. Foods high in purine form uric acid in the body and increase your risk for a gout attack. Therefore, avoid the following foods: certain seafoods (anchovies, sardines, shrimp, scallops, wilburn, mackerel); wild game, meat extracts and meat gravies; organ foods (kidney, liver, calf brain, sweetbreads). Avoid drinks with fructose (a type of sugar). Limit the following foods to one serving a day: red meat and pork, fish, poultry, dried beans and peas, asparagus, mushrooms, cauliflower and spinach. If you are overweight, this is a risk factor and you should talk to your doctor about a weight reduction plan. However, avoid fasting or extreme low calorie diets (less than 900 jack/day) which will increase uric acid levels in the body. If you are diabetic or have high blood pressure, work with your doctor to achieve control of these conditions. Avoid injury to the involved joint since this can lead to a gout attack. Colchicine can be effective in stopping a gout attack. If you were given a prescription of this medicine for future use, begin it at the first sign of an attack. Colchicine may cause nausea, vomiting, diarrhea and other side effects. Follow Up with your doctor as advised or if you are not improving after three days of treatment. Get Prompt Medical Attention if any of the following occur: Fever over 100.4F (38.0C) with worsening joint pain Increasing redness around the joint Pain developing in another joint Repeated vomiting, abdominal pain, or blood in the vomit or stool (black or red color) Arthralgia Arthralgia is the term for pain in or around the joint. It is not a disease but a symptom. This may involve one or more joints. Sometimes arthralgias move from joint to joint. There are many causes for joint pain. These include: Injury Osteoarthritis (from wearing out of the joint surface) Rheumatoid arthritis (an autoimmune disease) Gout (inflammation of the joint due to crystals in the joint fluid) Infection inside the joint Bursitis (inflammation of the fluid-filled sacs around the joint) Lupus and other collagen-vascular disease Home Care: Rest the involved joint(s) until your symptoms improve. You may use acetaminophen (Tylenol) or ibuprofen (Motrin, Advil) to control pain, unless another pain medicine was prescribed. [NOTE: If you have chronic liver or kidney disease or ever had a stomach ulcer or GI bleeding, talk with your doctor before using these medicines.] Follow Up with your doctor or as advised by our staff. [NOTE: If you had an X-ray it will be reviewed by a specialist. You will be notified of any new findings that may affect your care.] Return Promptly or contact your doctor if any of the following occurs: Pain increases Pain moves to other joints New rash appears Fever of 100.4F (38C) or higher, or as directed by your healthcare provider High Blood Pressure -- To Be Confirmed [No Tx] Your blood pressure was higher today than normal. Sometimes anxiety or pain can cause a temporary rise in blood pressure that later returns to normal. If your blood pressure is high on one measurement, this does not mean that you have hypertension (a chronic illness). However, you must have your blood pressure measured again within the next few days to find out if its still high. A normal blood pressure is 120/80 or less. The first (top) number is the "systolic" pressure. The second (bottom) number is the "diastolic" pressure. Hypertension exists when either the top number is 140 or higher, OR the bottom number is 90 or higher on repeated measurements. Blood pressure in the range of 120-140 (systolic) or 80-89 (diastolic) is considered "pre-hypertension". This means your are at risk for getting hypertension. You should have regular blood pressure checks to be sure your blood pressure is not rising. Home Care: Measure your blood pressure on 3 different days and write down the results. This can be done at your doctor's office or this facility. Some pharmacies and grocery stores offer automated blood pressure machines for your use. Follow Up: If your blood pressure is "high" (over 120/80) on 2 out of 3 days, you will need to follow up with your doctor for further evaluation and treatment. DO NOT PUT THIS OFF! Untreated high blood pressure increases the risk for heart attack, also known as acute myocardial infarction, or AMI, and stroke. It is a treatable condition. Get Prompt Medical Attention if any of the following occur: Chest pain or shortness of breath Severe headache Throbbing or rushing sound in the ears Nosebleed Sudden severe abdominal pain Extreme drowsiness, confusion or fainting Dizziness or vertigo (dizziness with spinning sensation) Weakness of an arm or leg or one side of the face Difficulty with speech or vision How To Quit Smoking Smoking is one of the hardest habits to break. About half of all those who have ever smoked have been able to quit, and most of those (about 70%) who still smoke want to quit. Here are some of the best ways to stop smoking. Keep Trying: It takes most smokers about 8 tries before they are finally able to fully quit. So, the more often you try and fail, the better your chance of quitting the next time! So, don't give up! Go Cold [place]: Most ex-smokers quit cold turkey. Trying to cut back gradually doesn't seem to work as well, perhaps because it continues the smoking habit. Also, it is possible to fool yourself by inhaling more while smoking fewer cigarettes. This results in the same amount of nicotine in your body! Get Support: Support programs can make an important difference, especially for the heavy smoker. These groups offer lectures, methods to change your behavior and peer support. Call the free national Quitline for more information. 216-URIR-QKT (284-314-3822). Low-cost or free programs are offered by many hospitals, local chapters of the [place] [employer] (301-860-3068) and the [place] [employer] (052-809-6420). Support at home is important too. Non-smokers can help by offering praise and encouragement. If the smoker fails to quit, encourage them to try again! Mwhi-Rrm-Uvapwkj Medicines: For those who can't quit on their own, Nicotine Replacement Therapy (NRT) may make quitting much easier. Certain aids such as the nicotine patch, gum and lozenge are available without a prescription. However, it is best to use these under the guidance of your doctor. The skin patch provides a steady supply of nicotine to the body. Nicotine gum and lozenge gives temporary bursts of low levels of nicotine. Both methods take the edge off the craving for cigarettes. WARNING: If you feel symptoms of nicotine overdose, such as nausea, vomiting, dizziness, weakness, or fast heartbeat, stop using these and see your doctor. Prescription Medicines: After evaluating your smoking patterns and prior attempts at quitting, your doctor may offer a prescription medicine such as bupropion (Zyban, Wellbutrin), varenicline (Chantix, Champix), a niocotine inhaler or nasal spray. Each has its unique advantage and side effects which your doctor can review with you. Health Benefits Of Quitting: The benefits of quitting start right away and keep improving the longer you go without smokin minutes: blood pressure and pulse return to normal 8 hours: oxygen levels return to normal 2 days: ability to smell and taste begins to improve as damaged nerves start to regrow 2-3 weeks: circulation and lung function improves 1-9 months: decreased cough, congestion and shortness of breath; less tired 1 year: risk of heart attack decreases by half 5 years: risk of lung cancer decreases by half; risk of stroke becomes the same as a non-smoker For information about how to quit smoking, visit the following links: National Cancer [place] , Clearing the Air, Quit Smoking Today - an online booklet. http://www.smokefree.gov/pubs/clearing_the_air.pdf Smokefree.gov http://smokefree.gov/ QuitNet http://www.quitnet.com/ Ibuprofen Oral tablet What is this medicine? IBUPROFEN (eye BYOO proe fen) is a non-steroidal anti-inflammatory drug (NSAID). It is used for dental pain, fever, headaches or migraines, osteoarthritis, rheumatoid arthritis, or painful monthly periods. It can also relieve minor aches and pains caused by a cold, flu, or sore throat. How should I use this medicine? Take this medicine by mouth with a glass of water. Follow the directions on the prescription label. Take this medicine with food if your stomach gets upset. Try to not lie down for at least 10 minutes after you take the medicine. Take your medicine at regular intervals. Do not take your medicine more often than directed. A special MedGuide will be given to you by the pharmacist with each prescription and refill. Be sure to read this information carefully each time. Talk to your traffic signal supervisor maintenance regarding the use of this medicine in children. Special care may be needed. What side effects may I notice from receiving this medicine? Side effects that you should report to your doctor or health progressive care nurse as soon as possible: allergic reactions like skin rash, itching or hives, swelling of the face, lips, or tongue black or bloody stools, blood in the urine or in vomit breathing problems changes in vision chest pain general ill feeling or flu-like symptoms nausea or vomiting redness, blistering, peeling or loosening of the skin, including inside the mouth slurred speech or weakness on one side of the body stomach pain unexplained weight gain or swelling unusually weak or tired yellowing of eyes or skin Side effects that usually do not require medical attention (report to your doctor or health progressive care nurse if they continue or are bothersome): constipation or diarrhea dizziness gas or heartburn stomach upset What may interact with this medicine? Do not take this medicine with any of the following medications: cidofovir ketorolac methotrexate pemetrexed This medicine may also interact with the following medications: alcohol aspirin diuretics lithium other drugs for inflammation like prednisone warfarin What if I miss a dose? If you miss a dose, take it as soon as you can. If it is almost time for your next dose, take only that dose. Do not take double or extra doses. Where should I keep my medicine? Keep out of the reach of children. Store at room temperature between 15 and 30 degrees C (59 and 86 degrees F). Keep container tightly closed. Throw away any unused medicine after the expiration date. What should I tell my health care provider before I take this medicine? They need to know if you have any of these conditions: asthma cigarette smoker drink more than 3 alcohol containing drinks a day heart disease or circulation problems such as heart failure or leg edema (fluid retention) high blood pressure kidney disease liver disease stomach bleeding or ulcers an unusual or allergic reaction to ibuprofen, aspirin, other NSAIDS, other medicines, foods, dyes, or preservatives or trying to get breast-feeding What should I watch for while using this medicine? Tell your doctor or healthcare professional if your symptoms do not start to get better or if they get worse. This medicine does not prevent heart attack or stroke. In fact, this medicine may increase the chance of a heart attack or stroke. The chance may increase with longer use of this medicine and in people who have heart disease. If you take aspirin to prevent heart attack or stroke, talk with your doctor or health progressive care nurse. Do not take other medicines that contain aspirin, ibuprofen, or naproxen with this medicine. Side effects such as stomach upset, nausea, or ulcers may be more likely to occur. Many medicines available without a prescription should not be taken with this medicine. This medicine can cause ulcers and bleeding in the stomach and intestines at any time during treatment. Ulcers and bleeding can happen without warning symptoms and can cause . To reduce your risk, do not smoke cigarettes or drink alcohol while you are taking this medicine. You may get drowsy or dizzy. Do not drive, use machinery, or do anything that needs mental alertness until you know how this medicine affects you. Do not stand or sit up quickly, especially if you are an older patient. This reduces the risk of dizzy or fainting spells. This medicine can cause you to bleed more easily. Try to avoid damage to your teeth and gums when you brush or floss your teeth. Acetaminophen Oral tablet What is this medicine? ACETAMINOPHEN (a set a REED adebayo fen) is a pain reliever. It is used to treat mild pain and fever. How should I use this medicine? Take this medicine by mouth with a glass of water. Follow the directions on the package or prescription label. Take your medicine at regular intervals. Do not take your medicine more often than directed. Talk to your traffic signal supervisor maintenance regarding the use of this medicine in children. While this drug may be prescribed for children as young as 6 years of age for selected conditions, precautions do apply. What side effects may I notice from receiving this medicine? Side effects that you should report to your doctor or health progressive care nurse as soon as possible: allergic reactions like skin rash, itching or hives, swelling of the face, lips, or tongue breathing problems fever or sore throat redness, blistering, peeling or loosening of the skin, including inside the mouth trouble passing urine or change in the amount of urine unusual bleeding or bruising unusually weak or tired yellowing of the eyes or skin Side effects that usually do not require medical attention (report to your doctor or health progressive care nurse if they continue or are bothersome): headache nausea, stomach upset What may interact with this medicine? alcohol imatinib isoniazid other medicines with acetaminophen What if I miss a dose? If you miss a dose, take it as soon as you can. If it is almost time for your next dose, take only that dose. Do not take double or extra doses. Where should I keep my medicine? Keep out of reach of children. Store at room temperature between 20 and 25 degrees C (68 and 77 degrees F). Protect from moisture and heat. Throw away any unused medicine after the expiration date. What should I tell my health care provider before I take this medicine? They need to know if you have any of these conditions: if you frequently drink alcohol containing drinks liver disease an unusual or allergic reaction to acetaminophen, other medicines, foods, dyes or preservatives or trying to get breast-feeding What should I watch for while using this medicine? Tell your doctor or health progressive care nurse if the pain lasts more than 10 days (5 days for children), if it gets worse, or if there is a new or different kind of pain. Also, check with your doctor if a fever lasts for more than 3 days. Do not take other medicines that contain acetaminophen with this medicine. Always read labels carefully. If you have questions, ask your doctor or pharmacist. If you take too much acetaminophen get medical help right away. Too much acetaminophen can be very dangerous and cause liver damage. Even if you do not have symptoms, it is important to get help right away. You have been given the following additional information: Osteoarthritis Gouty Arthritis Arthralgia Hypertension, To Be Confirmed Smoking Cessation Ibuprofen Oral tablet Acetaminophen Oral tablet You may walk and bear weight as tolerated. (Electronically signed by Hammad Romero DO 09/04/2016 11:00)
--- NOTE | 2016-09-04 11:00 | ED MAR SUMMARY ---
..... Medication Administration Record [facility] [address] [place], [place] [id number] Patient: TOMÁS WARD Visit ID: [id number] 65y, M Weight: 100.2 kg Height/Length: 73 in BMI: 29.2 ALLERGIES: No Known Drug Allergy
--- NOTE | 2016-09-04 11:00 | ED MAR SUMMARY ---
..... Medication Administration Record [facility] [address] [place], [place] [id number] Patient: TOMÁS WARD Visit ID: [id number] 65y, M Weight: 100.2 kg Height/Length: 73 in BMI: 29.2 ALLERGIES: No Known Drug Allergy
== END 2016-09-04 07:56 | disposition home or self-care (01) ==
LOC: ED SRH 06:49
DX: M19.071 Primary osteoarthritis, right ankle and foot (principal); I10 Essential (primary) hypertension